=== PATIENT | female | born 1940 ===

== ENCOUNTER 2017-09-21 14:53 | Inpatient (IN) | payer OTHER ==
[2017-09-21] MEDS ORDERED: Azithromycin 500 MG in Sodium Chloride 0.9% 250 ML IVPB STA (16:42)
[2017-09-21] MEDS ORDERED: Albuterol-Ipratrop 3 mg / 0.5 (3 ml) UD INH STA (16:42)
--- NOTE | 2017-09-21 16:48 | ED PDOC ---
HPI: General Adult Time Seen by Provider: 09/21/17 16:35 Chief Complaint (Nursing): Chest Pain Chief Complaint (Provider): cough History Per: Patient History/Exam Limitations: language barrier (lithuanian speaking) Onset/Duration Of Symptoms: Days (4-5) Have you had recent travel within the past 21 days to any of the following countries: [place], [place], [place] or [place]?: No Current Symptoms Are (Timing): Still Present Severity: Severe Pain Scale Rating Of: 7 Location: diffuse mid chest tightness Quality: severe Similar Symptoms Previously: a year ago, was at [place] with PNA Additional History Per: Patient Additional Complaint(s): pt p/w + few days (4-5) of worsening coughing, subjective fever, general malaise /weakness, some bodyaches/pain; decr appetite; pt noted no productive cough, no gross bleeding; no chills/sweats, + chest pain is rated severe at times; pt states she is concern that similar symptoms occurred 1 year ago while at [place] visiting family and was dx with PNA; pt states no palpitations, no new abd pain, no n/v, no numbness/tingling, no urinary/bowel changes, pt felt some right sided flank tenderness additionally; pt states no rashes, no fall/trauma/ sick contact, no travel clerk has not seen a doctor for awhile pt is here for further eval pt's without other complaints. PCP: NONE pt lives at home Past Medical History Reviewed: Historical Data, Nursing Documentation, Vital Signs Vital Signs: Last Vital Signs Temp 98.3 F 09/21/17 15:01 Pulse 81 09/21/17 15:01 Resp 16 09/21/17 15:01 BP 121/71 09/21/17 15:01 Pulse Ox 99 09/21/17 18:03 - Surgical History Surgical History: Cholecystectomy - Family History Family History: States: No Known Family Hx - Living Arrangements Living Arrangements: With Family - Social History Current smoker - smoking cessation education provided: No Ex-Smoker (has not smoked in the last 12 months): No Alcohol: None Drugs: Denies - Home Medications Home Medications: Ambulatory Orders Medication Instructions Recorded Multivitamin [Multi-Vitamin Daily] 1 tab PO DAILY 09/21/17 - Allergies Allergies/Adverse Reactions: Allergies Allergy/AdvReac Type Severity Reaction Status Date / Time No Known Allergies Allergy Unverified 09/21/17 16:40 Review of Systems ROS Statement: Except As Marked, All Systems Reviewed And Found Negative Constitutional: Positive for: Fever, Chills, Weakness, Malaise. Negative for: Sweats Eyes: Negative for: Pain ENT: Negative for: Ear Pain Cardiovascular: Positive for: Chest Pain, Light Headedness, Other (chest tightness) Respiratory: Positive for: Cough, Shortness of Breath, Wheezing Gastrointestinal: Positive for: Nausea, Abdominal Pain. Negative for: Vomiting Genitourinary Female: Negative for: Dysuria, Frequency, Incontinence, Vaginal Discharge, Vaginal Bleeding Skin: Negative for: Rash Neurological: Positive for: Weakness Physical Exam - Reviewed Nursing Documentation Reviewed: Yes Vital Signs Reviewed: Yes (WNL) - Physical Exam Appears: Positive for: Well (alert/awake, GCS = 15, oriented x 3, uncomfortable , NAD, resting in bed, cooperative), Non-toxic, Uncomfortable Head Exam: Positive for: ATRAUMATIC, NORMAL INSPECTION, NORMOCEPHALIC (mild bi- temporal wasting) Skin: Positive for: Normal Color (cap refill ~ 1sec, no ulcerations, no petechiae, no rashes/lesions, no pallor), Warm Eye Exam: Positive for: Normal appearance, EOMI, PERRL ENT: Positive for: Normal ENT Inspection Neck: Positive for: Normal, Supple, Trachea Midline Cardiovascular/Chest: Positive for: Regular Rate, Rhythm, Other (no murmur, +S1 , +S2). Negative for: Murmur Respiratory: Positive for: Decreased Breath Sounds, Wheezing, Other (+ bibasiliar wheezing, coarse breath sounds, +basiliar rhonchi b/l, no rales; mild tachypenia, no accessory muscle use noted, no retractions) Gastrointestinal/Abdominal: Positive for: Normal Exam (well nourished female, no focal tenderness, no castaneda's sign, no mcburney's point tenderness, no masses /rebound/guarding/rigidity), Bowel Sounds, Soft Back: Positive for: Normal Inspection. 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 - ECG ECG: Positive for: Interpreted By Me Interpretation Of ECG: NSR at 75 bpm, normal axis, no ectopy, non-specific st-t changes, BORDERLINE EKG ; no old ekg to compare with O2 Sat by Pulse Oximetry: 99 Pulse Ox Interpretation: Normal - Radiology X-Ray: Viewed By Me, Read By Radiologist - Progress ED Course And Treament: HISTORY: coughing/fever/chest pain COMPARISON: No prior. TECHNIQUE: Chest PA and lateral FINDINGS: LUNGS: No active pulmonary disease. PLEURA: No significant pleural effusion identified. No pneumothorax apparent. CARDIOVASCULAR: No radiographic findings to suggest acute or significant cardiovascular disease. OSSEOUS STRUCTURES: No significant abnormalities. VISUALIZED UPPER ABDOMEN: Normal. OTHER FINDINGS: None. IMPRESSION: No active disease. pt is currently feeling some improvement 6:15pm - pt is made aware of her medical results pt agrees with admission I spoke to DR PANTOJA, clinical research monitor medical service, made aware, agrees with admission Re-evaluation Time: 18:02 Condition: Improving,but remains with symptoms - Physician Consult Information Time Consulting Physican Contacted: 18:15 Physician Contacted: Petr Pantoja Outcome Of Conversation: made aware, agrees with admission Nebulizer Treatments/Peak Flow - Duonebs Number of Bronchodilator Doses given?: 3 - Steroid Treatment Steroid: IV - Clinical Response Clinical Response: Improved Medical Decision Making Medical Decision Making: Impression: sob/coughing, fever, chest pain i have consider all the differential diagnosis regarding pt's chief medical complaints/clinical findings, including but are not limited to: sob/coughing, fever, chest pain A/P: sob/coughing, fever, chest pain - labs - iv - xray - acs eval - treatment - steroids - supportive care - observe Disposition - Clinical Impression Clinical Impression: Acute bronchitis, Chest pain, UTI (urinary tract infection), Acute bronchitis with bronchospasm - Patient ED Disposition Is Patient to be Admitted: Yes Discussed With : Petr Pantoja Doctor Will See Patient In The: Hospital Counseled Patient/Family Regarding: Studies Performed, Diagnosis, Need For Followup, Rx Given - Disposition Disposition Time: 18:15 Condition: STABLE Forms: [employer] (Telugu) - Pt Status Changed To: Hospital Disposition Of: Inpatient - Admit Certification Admit to Inpatient:: After my assessment, the patient will require hospitalization for at least two midnights. This is because of the severity of symptoms shown, intensity of services needed, and/or the medical risk in this patient being treated as an outpatient.
[2017-09-21 17:01] LABS: BASO # 0.1 K/uL (0.0-0.2); BASO % 1.4 % (0.0-2.0); EOS # 0.2 K/uL (0.0-0.7); EOS % 2.6 % (0.0-4.0); HEMOGLOBIN 12.9 g/dL (12.0-16.0); LYMPH # 3.8 K/uL (1.0-4.3); LYMPH % 43.1 % (20.0-40.0); MEAN CELL VOLUME 87.6 fl (81.0-99.0); MEAN CORPUSCULAR HEMOGLOBIN 29.6 pg (27.0-31.0); MEAN CORPUSCULAR HGB CONC 33.8 g/dL (33.0-37.0); MONO % 11.3 % (0.0-10.0); NEUT # 3.7 K/uL (1.8-7.0); NEUT % 41.6 % (50.0-75.0); NRBC % 0.1 % (0.0-0.0); RBC 4.36 Mil/uL (3.80-5.20); RED CELL DISTRIBUTION WIDTH 15.2 % (11.5-14.5); WHITE BLOOD COUNT 8.9 K/uL (4.8-10.8)
[2017-09-21] MEDS ORDERED: cefTRIAXone (Rocephin) 1 gm Inj ONE (17:04)
[2017-09-21 17:09] LABS: VENOUS BLOOD GAS PCO2 49 mmHg (40-60); VENOUS BLOOD GAS PO2 27 mm/Hg (30-55); VENOUS BLOOD PH 7.38 (7.32-7.43)
[2017-09-21] MEDS ORDERED: Albuterol-Ipratrop 3 mg / 0.5 (3 ml) UD ONE (17:11)
[2017-09-21 17:13] LABS: ALB/GLOB RATIO 0.9 (1.0-2.1); ALBUMIN 3.9 g/dL (3.5-5.0); ALT/SGPT 35 U/L (9-52); AST/SGOT 45 U/L (14-36); BLOOD UREA NITROGEN 16 mg/dl (7-17); CALCIUM 9.3 mg/dL (8.4-10.2); GFR AFRICAN-AMERICAN > 60; GFR NON-AFRICAN AMERICAN > 60
[2017-09-21 17:19] LABS: PARTIAL THROMBOPLASTIN TIME 30.6 Seconds (25.6-37.1); PROTHROMBIN TIME 11.4 Seconds (9.8-13.1)
[2017-09-21] MEDS: Sodium Chloride 0.9% 1,000 ML IV SCH (17:22)
[2017-09-21 17:25] LABS: SQUAMOUS EPITHIAL 1 /hpf (0-5); URINE BACTERIA FEW (<OCC); URINE BILIRUBIN NEGATIVE (NEGATIVE); URINE BLOOD NEGATIVE (NEGATIVE); URINE CLARITY CLOUDY (Clear); URINE COLOR AMBER (YELLOW); URINE GLUCOSE (UA) NEG (Normal); URINE LEUKOCYTE ESTERASE SMALL Leu/uL (Negative); URINE PROTEIN 30 mg/dL (NEGATIVE); URINE UROBILINOGEN 0.2-1.0 mg/dL (0.2-1.0)
[2017-09-21 17:25] LABS: B-TYPE NATRIURETIC PEPTIDE 58.4 pg/ml (0-900)
--- NOTE | 2017-09-21 18:01 | RAD ---
HISTORY: coughing/fever/chest pain COMPARISON: No prior. TECHNIQUE: Chest PA and lateral FINDINGS: LUNGS: No active pulmonary disease. PLEURA: No significant pleural effusion identified. No pneumothorax apparent. CARDIOVASCULAR: No radiographic findings to suggest acute or significant cardiovascular disease. OSSEOUS STRUCTURES: No significant abnormalities. VISUALIZED UPPER ABDOMEN: Normal. OTHER FINDINGS: None. IMPRESSION: No active disease.
[2017-09-22] MEDS ORDERED: Albuterol-Ipratrop 3 mg / 0.5 (3 ml) UD ONE ×2 (02:29→08:33)
[2017-09-22] MEDS: Albuterol-Ipratrop 3 mg / 0.5 (3 ml) UD INH SCH ×3 (02:30→19:01)
[2017-09-22] MEDS ORDERED: methylPREDNISolone 80 MG in Sodium Chloride 0.9% 50 ML IV SCH (05:00)
[2017-09-22] MEDS: Sodium Chloride 0.9% 1,000 ML IV SCH (08:44)
[2017-09-22] MEDS: Enoxaparin 40 mg Syringe SC SCH (09:02)
[2017-09-22] MEDS: Azithromycin 500 MG in Sodium Chloride 0.9% 250 ML IVPB SCH (11:44)
[2017-09-22] MEDS ORDERED: Sodium Chloride 3% for Inhalation 4 ML VIAL.NEB IH PRN (12:21)
--- NOTE | 2017-09-22 15:00 | HP ---
HISTORY OF PRESENT ILLNESS: Ms. Amezquita is a 77-year-old female who was admitted via the Emergency Room because of cough, shortness of breath, exercise intolerance, generalized malaise, body aches and pains for the past several days prior to presentation. She was seen in the Emergency Room and admitted for acute bronchospasm and respiratory insufficiency. She has a history of similar episode about 2 years ago while she was visiting [place] and was treated for acute bronchitis. PAST MEDICAL HISTORY: She has unremarkable past medical history. FAMILY HISTORY: Noncontributory. SOCIAL HISTORY: She does not drink or smoke and lives at home. REVIEW OF SYSTEMS: Essentially unremarkable. PHYSICAL EXAMINATION: GENERAL: The patient is alert and oriented. VITAL SIGNS: Blood pressure of 120/70 with a pulse of 80, and respiratory rate is 18. She is febrile. O2 saturation of 99% on room air. SKIN: Shows fair turgor. HEENT: Pupils are equal, round and reactive to light and accommodation. Mouth shows fair hygiene. JVP is flat. LUNGS: Bilateral audible wheezing and rales. HEART: S1 and S2. GASTROINTESTINAL: Abdomen is soft and nontender. No organomegaly. BREASTS: Normal. EXTREMITIES: Shows no edema or cyanosis. NEUROLOGIC: Central nervous system exam is grossly intact. IMAGING DATA: Chest x-ray shows no acute cardiopulmonary pathology. EKG: Normal sinus rhythm and possible left atrial enlargement. LABORATORY DATA: WBC of 8.9, hemoglobin of 12.9, and platelet count of 220,000. Arterial blood gas; pH of 7.38, pO2 of 27, and pCO2 of 49, this is venous blood gas on room air. Sodium of 142, potassium of 4.2, BUN of 16, and creatinine of 0.6. Troponin is less than 0.012 times 3. IMPRESSION AND PLAN: Cough with shortness of breath and chest pain, probably secondary to acute bronchospasm secondary to new onset asthma with superimposed on upper respiratory tract infection. The plan is to continue as well as bronchodilators, intravenous steroids and analgesics for chest pain. We would obtain sputum for Gram stain and cultures. If clinically stable, we will plan discharge in a few days. Petr Desir MD [facility] # [id number]
[2017-09-23] MEDS: Albuterol-Ipratrop 3 mg / 0.5 (3 ml) UD INH SCH ×4 (01:33→19:18)
[2017-09-23] MEDS ORDERED: DiphenhydrAMINE 12.5 mg/5 ml LIQ UD (5 ml) PO ONE (01:47)
[2017-09-23] MEDS: Enoxaparin 40 mg Syringe SC SCH (11:03)
[2017-09-23] MEDS: Multivitamin With Minerals Tab PO SCH (11:04)
[2017-09-23] MEDS: Azithromycin 500 MG in Sodium Chloride 0.9% 250 ML IVPB SCH (11:05)
--- NOTE | 2017-09-23 11:31 | CP.PCM.PN ---
Subjective - Date & Time of Evaluation Date of Evaluation: 09/23/17 Time of Evaluation: 11:31 - Subjective Subjective: SOB AND COUGH IMPROVING Objective - Vital Signs/Intake and Output Vital Signs (last 24 hours): Temp Pulse Resp BP Pulse Ox 97.6 F 91 H 20 124/80 96 09/23/17 09:00 09/23/17 09:00 09/23/17 09:00 09/23/17 09:00 09/23/17 09:00 - Medications Medications: Current Medications Acetaminophen (Tylenol 325mg Tab) 650 mg PO Q4 PRN PRN Reason: fever Albuterol/Ipratropium (Duoneb 3 Mg/0.5 Mg (3 Ml) Ud) 3 ml INH RQ6 [facility] Last Admin: 09/23/17 07:16 Dose: 3 ml Enoxaparin Sodium (Lovenox) 40 mg SC DAILY GELY PRN Reason: Protocol Last Admin: 09/23/17 11:03 Dose: 40 mg Azithromycin 500 mg/ Sodium (Chloride) 250 mls @ 250 mls/hr IVPB DAILY GELY PRN Reason: Protocol Last Admin: 09/23/17 11:05 Dose: 250 mls/hr Ceftriaxone Sodium 1 gm/ (Sodium Chloride) 100 mls @ 100 mls/hr IVPB DAILY GELY PRN Reason: Protocol Last Admin: 09/23/17 10:03 Dose: 100 mls/hr Methylprednisolone (Solu-Medrol) 80 mg IV Q8H [facility] Last Admin: 09/23/17 05:52 Dose: 80 mg Multivitamins/Minerals (Therapeutic-M Tab) 1 tab PO DAILY GELY Last Admin: 09/23/17 11:04 Dose: 1 tab - Labs Labs: 09/21/17 16:30 09/21/17 16:30 PT 11.4 Seconds (9.8-13.1) 09/21/17 16:30 INR 1.0 (0.9-1.2) 09/21/17 16:30 APTT 30.6 Seconds (25.6-37.1) 09/21/17 16:30 - Constitutional Appears: No Acute Distress - Head Exam Head Exam: ATRAUMATIC, NORMAL INSPECTION, NORMOCEPHALIC - Eye Exam Eye Exam: EOMI, Normal appearance, PERRL Pupil Exam: NORMAL ACCOMODATION, PERRL - ENT Exam ENT Exam: Mucous Membranes Moist, Normal Exam - Neck Exam Neck Exam: Full ROM, Normal Inspection. absent: Lymphadenopathy - Respiratory Exam Respiratory Exam: Decreased Breath Sounds, Prolonged Expiratory Phase, Rales, Wheezes, NORMAL BREATHING PATTERN - Cardiovascular Exam Cardiovascular Exam: REGULAR RHYTHM, +S1, +S2. absent: Murmur - GI/Abdominal Exam GI & Abdominal Exam: Soft, Normal Bowel Sounds. absent: Tenderness - Rectal Exam Rectal Exam: NORMAL INSPECTION - Extremities Exam Extremities Exam: Full ROM, Normal Capillary Refill, Normal Inspection. absent : Joint Swelling, Pedal Edema - Back Exam Back Exam: NORMAL INSPECTION - Neurological Exam Neurological Exam: Alert, Awake, CN II-XII Intact, Normal Gait, Oriented x3 - Psychiatric Exam Psychiatric exam: Normal Affect, Normal Mood - Skin Skin Exam: Dry, Intact, Normal Color, Warm Assessment and Plan - Assessment and Plan (Free Text) Assessment: ACUTE ASTHMA URI Plan: CONTINUE PRESENT RX TAPER STEROIDS D/C IN AM IF STABLE
[2017-09-23] MEDS: MethylPREDNISolone 40 mg Vial IV SCH ×2 (14:05→23:36)
[2017-09-23 23:43] VITALS: PULSE 76
[2017-09-24] MEDS: Albuterol-Ipratrop 3 mg / 0.5 (3 ml) UD INH SCH ×3 (01:00→13:38)
--- NOTE | 2017-09-24 08:38 | CP.PCM.DIS ---
Provider - Provider Date of Admission: 09/22/17 12:22 Attending physician: Petr Desir MD Time Spent in preparation of Discharge (in minutes): 30 Diagnosis - Discharge Diagnosis (1) Asthma Status: Acute (2) Acute bronchitis Status: Acute (3) Acute bronchitis with bronchospasm Status: Acute Hospital Course - Lab Results Lab Results: Micro Results 09/21/17 16:30 Blood Blood Culture - Preliminary NO GROWTH AFTER 48 HOURS 09/21/17 16:45 Urine Urine Culture - Final 50-100,000 CFU/ML. MULTIPLE SPECIES. SUGGEST REPEAT SPECIMEN. Most Recent Lab Values WBC 8.9 K/uL (4.8-10.8) 09/21/17 16:30 RBC 4.36 Mil/uL (3.80-5.20) 09/21/17 16:30 Hgb 12.9 g/dL (12.0-16.0) 09/21/17 16:30 Hct 38.2 % (34.0-47.0) 09/21/17 16:30 MCV 87.6 fl (81.0-99.0) 09/21/17 16:30 MCH 29.6 pg (27.0-31.0) 09/21/17 16:30 MCHC 33.8 g/dL (33.0-37.0) 09/21/17 16:30 RDW 15.2 % (11.5-14.5) H 09/21/17 16:30 Plt Count 220 K/uL (130-400) 09/21/17 16:30 MPV 9.0 fl (7.2-11.7) 09/21/17 16:30 Neut % (Auto) 41.6 % (50.0-75.0) L 09/21/17 16:30 Lymph % (Auto) 43.1 % (20.0-40.0) H 09/21/17 16:30 [place] % (Auto) 11.3 % (0.0-10.0) H 09/21/17 16:30 Eos % (Auto) 2.6 % (0.0-4.0) 09/21/17 16:30 Baso % (Auto) 1.4 % (0.0-2.0) 09/21/17 16:30 Neut # (Auto) 3.7 K/uL (1.8-7.0) 09/21/17 16:30 Lymph # (Auto) 3.8 K/uL (1.0-4.3) 09/21/17 16:30 [place] # (Auto) 1.0 K/uL (0.0-0.8) H 09/21/17 16:30 Eos # (Auto) 0.2 K/uL (0.0-0.7) 09/21/17 16:30 Baso # (Auto) 0.1 K/uL (0.0-0.2) 09/21/17 16:30 PT 11.4 Seconds (9.8-13.1) 09/21/17 16:30 INR 1.0 (0.9-1.2) 09/21/17 16:30 APTT 30.6 Seconds (25.6-37.1) 09/21/17 16:30 pO2 27 mm/Hg (30-55) L 09/21/17 17:02 VBG pH 7.38 (7.32-7.43) 09/21/17 17:02 VBG pCO2 49 mmHg (40-60) 09/21/17 17:02 VBG HCO3 25.9 mmol/L 09/21/17 17:02 VBG Total CO2 30.5 mmol/L (22-28) H 09/21/17 17:02 VBG O2 Sat (Calc) 52.5 % (40-65) 09/21/17 17:02 VBG Base Excess 3.0 mmol/L (0.0-2.0) H 09/21/17 17:02 VBG Potassium 3.7 mmol/L (3.6-5.2) 09/21/17 17:02 Sodium 139.0 mmol/L (132-148) 09/21/17 17:02 Chloride 108.0 mmol/L (98-107) H 09/21/17 17:02 Glucose 76 mg/dL (65-105) 09/21/17 17:02 Lactate 0.8 mmol/L (0.7-2.1) 09/21/17 17:02 FiO2 21.0 % 09/21/17 17:02 Sodium 142 mmol/l (132-148) 09/21/17 16:30 Potassium 4.2 MMOL/L (3.6-5.0) 09/21/17 16:30 Chloride 102 mmol/L (98-107) 09/21/17 16:30 Carbon Dioxide 26 mmol/L (22-30) 09/21/17 16:30 Anion Gap 18 (10-20) 09/21/17 16:30 BUN 16 mg/dl (7-17) 09/21/17 16:30 Creatinine 0.6 mg/dl (0.7-1.2) L 09/21/17 16:30 Est GFR ( Amer) > 60 09/21/17 16:30 Est GFR (Non-Af Amer) > 60 09/21/17 16:30 Random Glucose 82 mg/dL (65-105) 09/21/17 16:30 Calcium 9.3 mg/dL (8.4-10.2) 09/21/17 16:30 Magnesium 2.4 MG/DL (1.6-2.3) H 09/21/17 16:30 Total Bilirubin 0.5 mg/dl (0.2-1.3) 09/21/17 16:30 AST 45 U/L (14-36) H 09/21/17 16:30 ALT 35 U/L (9-52) 09/21/17 16:30 Alkaline Phosphatase 68 U/L (38-126) 09/21/17 16:30 Troponin I < 0.0120 ng/mL (0.00-0.120) 09/22/17 09:38 NT-Pro-B Natriuret Pep 58.4 pg/ml (0-900) 09/21/17 16:30 Total Protein 8.0 G/DL (6.3-8.2) 09/21/17 16:30 Albumin 3.9 g/dL (3.5-5.0) 09/21/17 16:30 Globulin 4.1 gm/dL (2.2-3.9) H 09/21/17 16:30 Albumin/Globulin Ratio 0.9 (1.0-2.1) L 09/21/17 16:30 TSH 3rd Generation 3.31 mIU/ML (0.46-4.68) 09/21/17 16:30 Venous Blood Potassium 3.7 mmol/L (3.6-5.2) 09/21/17 17:02 Urine Color [place] (YELLOW) 09/21/17 16:45 Urine Clarity Cloudy (Clear) 09/21/17 16:45 Urine pH 6.0 (5.0-8.0) 09/21/17 16:45 Ur Specific [place] 1.024 (1.003-1.030) 09/21/17 16:45 Urine Protein 30 mg/dL (NEGATIVE) 09/21/17 16:45 Urine Glucose (UA) Neg mg/dL (Normal) 09/21/17 16:45 Urine Ketones Negative mg/dL (NEGATIVE) 09/21/17 16:45 Urine Blood Negative (NEGATIVE) 09/21/17 16:45 Urine Nitrate Positive (NEGATIVE) H 09/21/17 16:45 Urine Bilirubin Negative (NEGATIVE) 09/21/17 16:45 Urine Urobilinogen 0.2-1.0 mg/dL (0.2-1.0) 09/21/17 16:45 Ur Leukocyte Esterase Small [place]/uL (Negative) 09/21/17 16:45 Urine RBC (Auto) 3 /hpf (0-3) 09/21/17 16:45 Urine Microscopic WBC 10 /hpf (0-5) H 09/21/17 16:45 Ur Squamous Epith Cells 1 /hpf (0-5) 09/21/17 16:45 Urine Bacteria Few (<OCC) H 09/21/17 16:45 Influenza Typ A,B (EIA) Negative for flu a/b (NEGATIVE) 09/21/17 16:30 - Hospital Course Hospital Course: COUGH LESS FEELS BETTER SOB IMPROVED Discharge Exam - Head Exam Head Exam: ATRAUMATIC, NORMAL INSPECTION, NORMOCEPHALIC - Eye Exam Eye Exam: EOMI, Normal appearance, PERRL Pupil Exam: NORMAL ACCOMODATION, PERRL - GI/Abdominal Exam GI & Abdominal Exam: Normal Bowel Sounds - Rectal Exam Rectal Exam: NORMAL INSPECTION - Neurological Exam Neurological exam: Alert, CN II-XII Intact, Normal Gait, Oriented x3, Reflexes Normal - Psychiatric Exam Psychiatric exam: Normal Affect, Normal Mood - Skin Skin Exam: Dry, Intact, Normal Color, Warm Discharge Plan - Follow Up Plan Condition: STABLE Disposition: HOME/ ROUTINE Patient education suggested?: Yes Additional Instructions: D/C HOME TODAY FOLLOW UP WITH PMD
[2017-09-24] MEDS: Enoxaparin 40 mg Syringe SC SCH (09:06)
[2017-09-24] MEDS: Multivitamin With Minerals Tab PO SCH (09:07)
[2017-09-24] MEDS: Azithromycin 500 MG in Sodium Chloride 0.9% 250 ML IVPB SCH (09:08)
[2017-09-24] MEDS: MethylPREDNISolone 40 mg Vial IV SCH (12:00)
--- NOTE | 2017-09-24 13:40 | CARD ---
APPROVED REPORT EKG Measurement Heart [id number] <Conclusion> Normal sinus rhythm Normal ECG
--- NOTE | 2017-09-24 13:46 | CARD ---
APPROVED REPORT EKG Measurement Heart [id number] <Conclusion> Normal sinus rhythm Possible Left atrial enlargement Borderline ECG
[2017-09-24 15:44] VITALS: BP 143/71; RESP 20; TEMP 97.9; O2SAT 95
== END 2017-09-24 16:55 | disposition home or self-care (01) | DRG 96 ==
LOC: H.ER 14:53 → EDBD 14:53 → H.ERHOLD 18:10 → OBSVTOIN 09-22 12:22 → H.MEDSURG1 09-22 14:56
PROVIDERS: ADMIT Internal Medicine Pulmonary Disease; ATTEND Internal Medicine Pulmonary Disease
PROC: 3E0F7GC Introduction of Other Therapeutic Substance into Respiratory Tract, Via Natural or Artificial Opening (ICD-10-PCS; principal; 2017-09-22)
DX: J20.9 Acute bronchitis, unspecified (principal); N39.0 Urinary tract infection, site not specified; J06.9 Acute upper respiratory infection, unspecified; J45.909 Unspecified asthma, uncomplicated